=== PATIENT | female | born 2000 | race Caucasian/White ===

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

== ENCOUNTER 2020-02-13 10:10 | Inpatient (IN) ==
[2020-02-13] MEDS ORDERED: *HR* LORazepam 2 MG/ML VIAL IM PRN (10:21)
[2020-02-13] MEDS ORDERED: *HR* LORazepam 1 MG TABLET PO PRN (10:21)
[2020-02-13] MEDS ORDERED: Ibuprofen 400 MG TABLET PO PRN (10:21)
[2020-02-13] MEDS ORDERED: haloperidoL 5 MG TABLET PO PRN (10:21)
[2020-02-13] MEDS ORDERED: MOM Conc 10 ML UD.LIQ PO PRN (10:21)
[2020-02-13] MEDS ORDERED: Haloperidol Lactate 5 MG/ML VIAL IM PRN (10:21)
[2020-02-13] MEDS ORDERED: Mag Hydrox/Al Hydrox/Simeth 30 ML UDC PO PRN (10:21)
[2020-02-13] MEDS ORDERED: Calamine/Zinc oxide Lotion 120 ML BOTTLE TP PRN (17:00)
[2020-02-13] MEDS: hydrOXYzine pamoate 25 MG CAPSULE PO PRN (20:20)
[2020-02-13] MEDS: traZODone 50 MG TABLET PO PRN ×2 (20:20→22:05)
[2020-02-13] MEDS ORDERED: ARIPiprazole 5 MG TABLET PO SCH (21:00)
[2020-02-14] MEDS: Cholecalciferol (D-3) 1,000 UNIT (25MCG) TABLET PO SCH (09:45)
[2020-02-14] MEDS: lamoTRIgine 100 MG TABLET PO SCH (20:58)
[2020-02-14] MEDS: hydrOXYzine pamoate 25 MG CAPSULE PO PRN (20:58)
[2020-02-14] MEDS: ARIPiprazole 10 MG TABLET PO SCH (20:58)
[2020-02-14] MEDS: traZODone 50 MG TABLET PO PRN (20:58)
[2020-02-15] MEDS: Cholecalciferol (D-3) 1,000 UNIT (25MCG) TABLET PO SCH (09:41)
[2020-02-15] MEDS: ARIPiprazole 10 MG TABLET PO SCH (20:21)
[2020-02-15] MEDS: hydrOXYzine pamoate 25 MG CAPSULE PO PRN (20:22)
[2020-02-15] MEDS: Melatonin 3 MG TABLET PO SCH (20:22)
[2020-02-15] MEDS: lamoTRIgine 100 MG TABLET PO SCH (20:22)
[2020-02-16] MEDS: Cholecalciferol (D-3) 1,000 UNIT (25MCG) TABLET PO SCH (08:27)
[2020-02-16] MEDS: lamoTRIgine 25 MG TABLET PO SCH (12:08)
[2020-02-16] MEDS: Melatonin 3 MG TABLET PO SCH (20:11)
[2020-02-16] MEDS: hydrOXYzine pamoate 25 MG CAPSULE PO PRN (20:11)
[2020-02-16] MEDS: ARIPiprazole 10 MG TABLET PO SCH (20:12)
[2020-02-16] MEDS: lamoTRIgine 100 MG TABLET PO SCH (20:12)
[2020-02-16] MEDS ORDERED: ARIPiprazole 5 MG TABLET PO SCH (21:00)
[2020-02-17] MEDS: Cholecalciferol (D-3) 1,000 UNIT (25MCG) TABLET PO SCH (08:51)
[2020-02-17] MEDS: lamoTRIgine 25 MG TABLET PO SCH (08:52)
[2020-02-17] MEDS: lamoTRIgine 100 MG TABLET PO SCH (20:41)
[2020-02-17] MEDS: ARIPiprazole 10 MG TABLET PO SCH (20:41)
[2020-02-17] MEDS: Melatonin 3 MG TABLET PO SCH (20:41)
[2020-02-18] MEDS: Cholecalciferol (D-3) 1,000 UNIT (25MCG) TABLET PO SCH (09:08)
[2020-02-18] MEDS: lamoTRIgine 25 MG TABLET PO SCH (09:08)
[2020-02-18] MEDS ORDERED: lamoTRIgine 25 MG TABLET PO ONE (11:30)
[2020-02-18] MEDS: hydrOXYzine pamoate 25 MG CAPSULE PO PRN (18:23)
[2020-02-18] MEDS: Melatonin 3 MG TABLET PO SCH (20:56)
[2020-02-18] MEDS: lamoTRIgine 100 MG TABLET PO SCH (20:56)
[2020-02-18] MEDS ORDERED: ARIPiprazole 10 MG TABLET PO SCH (21:00)
[2020-02-19 07:52] VITALS: BP 96/67
[2020-02-19] MEDS: lamoTRIgine 25 MG TABLET PO SCH ×2 (08:58→09:24)
[2020-02-19] MEDS: Cholecalciferol (D-3) 1,000 UNIT (25MCG) TABLET PO SCH (08:58)
== END 2020-02-19 12:55 | disposition home or self-care (01) | DRG 885 ==
LOC: SUATTDRO 10:10 → 1ANU 10:10
PROVIDERS: ADMIT Psychiatry & Neurology Forensic Psychiatry; ATTEND Psychiatry & Neurology Psychiatry

== ENCOUNTER 2020-11-25 20:53 | Observation (INO) ==
[2020-11-25] MEDS ORDERED: 0.9 % Sodium Chloride 1,000 ML ONE (21:42)
[2020-11-25] MEDS ORDERED: 0.9 % Sodium Chloride 1,000 ML IVC ONE ×2 (21:48→23:15)
[2020-11-25 21:50] LABS: Basophils % 0.4 %; Eosinophils # 0.1 K/mcL (0.0-0.6); Hematocrit 42.1 % (35.3-44.9); Hemoglobin 14.3 g/dL (11.5-15.4); Immature Granulocytes % 0.2 % (0-4); Lymphocytes # 2.1 K/mcL (0.6-4.6); Lymphocytes % 23.9 %; Mean Corpuscular Hemoglobin 32.2 pg (28.0-33.3); Mean Corpuscular Volume 94.8 fL (83.0-100.0); Mean Platelet Volume 10.8 fL (9.4-12.4); Monocytes # 0.5 K/mcL (0.0-1.3); Monocytes % 5.7 %; Neutrophils # 6.1 K/mcL (1.6-8.9); Platelet Count 314 K/mcL (140-400); Red Blood Count 4.44 M/mcL (3.82-4.97); Red Cell Distribution Width 12.2 % (11.5-14.5); Segmented Neutrophils % 68.8 %; White Blood Count 8.9 K/mcL (4.3-11.1)
[2020-11-25 21:58] LABS: Amphetamine Screen,Urine Negative ng/mL (Cutoff=1000); Barbiturate Screen,Urine Negative ng/mL (Cutoff=200); Benzodiazepines Screen,Urine Negative ng/mL (Cutoff=200); Cannabinoid Screen,Urine Negative ng/mL (Cutoff = 50); Cocaine Screen,Urine Negative ng/mL (Cutoff= 300); Opiate Screen,Urine Negative ng/mL (Cutoff=300); Phencyclidine Screen,Urine Negative ng/mL (Cutoff=25)
[2020-11-25 22:09] LABS: Bilirubin,Urine Negative (Negative); Blood,Urine Negative (Negative); Clarity,Urine Clear (Clear); Color,Urine Colorless (Yellow); Glucose,Urine (UA) Normal (Normal); Ketones,Urine Negative (Negative); Leukocyte Esterase,Urine Negative (Negative); Nitrite,Urine Negative (Negative); Protein,Urine Negative (Neg-Trace); Specific Gravity,Urine 1.012 (1.010-1.025); Urobilinogen,Urine Normal (Normal)
[2020-11-25 22:55] LABS: Acetaminophen < 10 mcg/mL (10-20); BUN/Creatinine Ratio 17 (6-26); Blood Urea Nitrogen 14 mg/dL (6-20); Calcium 9.7 mg/dL (8.6-10.3); Carbon Dioxide 18 mEq/L (23-29); Chloride 108 mEq/L (98-107); Chol/HDL Ratio 4.6 (0-4.9); Cholesterol 174 mg/dL (< 200); Creatine Kinase 61 Units/L (30-223); Estimated Average Glucose 91 mg/dl; Ethanol < 10 mg/dL (Less than 10); Glucose 116 mg/dL (70-105); HDL Cholesterol 38 mg/dL (40-59); Hemoglobin A1C 4.8 %; Osmolality,Calculated 285 (280-300); Potassium 3.4 mEq/L (3.5-5.1); Salicylate < 2.5 mg/dL (15.0-30.0); Sodium 137 mEq/L (136-145); Triglycerides 582 mg/dL (< 150); eGFR For African Americans > 60 (> 60); eGFR For Non-African Americans > 60 (> 60)
[2020-11-25] MEDS ORDERED: Naloxone 0.4 MG/ML INJ IVP PRN (23:58)
[2020-11-26] MEDS ORDERED: Potassium Chloride 40 MEQ, Lidocaine 1% 2 ML in 0.9 % Sodium Chloride 500 ML IVPB ONE (00:39)
[2020-11-26] MEDS ORDERED: Magnesium Sulfate 1 GM/102 ML PIGGYBACK IVPB ONE (00:40)
[2020-11-26 02:22] LABS: Basophils % 0.5 %; Eosinophils % 0.3 %; Hematocrit 39.5 % (35.3-44.9); Immature Granulocytes % 0.2 % (0-4); Lymphocytes # 1.5 K/mcL (0.6-4.6); Lymphocytes % 17.1 %; Mean Corpuscular HGB Conc 32.9 g/dL (31.6-35.5); Mean Corpuscular Hemoglobin 32.1 pg (28.0-33.3); Mean Corpuscular Volume 97.5 fL (83.0-100.0); Mean Platelet Volume 10.8 fL (9.4-12.4); Monocytes # 0.4 K/mcL (0.0-1.3); Neutrophils # 6.6 K/mcL (1.6-8.9); Platelet Count 238 K/mcL (140-400); Red Blood Count 4.05 M/mcL (3.82-4.97); Red Cell Distribution Width 12.3 % (11.5-14.5); Segmented Neutrophils % 76.9 %; White Blood Count 8.6 K/mcL (4.3-11.1)
[2020-11-26 02:43] LABS: Alanine Aminotransferase 18 Units/L (7-52); Albumin 3.9 g/dL (3.5-5.7); Albumin/Globulin Ratio 1.6 (1.1-2.2); Alkaline Phosphatase 83 Units/L (34-104); Aspartate Amino Transferase 17 Units/L (13-39); BUN/Creatinine Ratio 21 (6-26); Bilirubin,Total 0.2 mg/dL (0.3-1.0); Blood Urea Nitrogen 13 mg/dL (6-20); Calcium 8.7 mg/dL (8.6-10.3); Carbon Dioxide 17 mEq/L (23-29); Chloride 111 mEq/L (98-107); Globulin 2.4 g/dL (2.4-3.5); Glucose 119 mg/dL (70-105); Osmolality,Calculated 287 (280-300); Potassium 3.7 mEq/L (3.5-5.1); Sodium 138 mEq/L (136-145); Total Protein 6.3 g/dL (6.4-8.9); eGFR For African Americans > 60 (> 60); eGFR For Non-African Americans > 60 (> 60)
[2020-11-26] MEDS: 0.9 % Sodium Chloride 1,000 ML IVC SCH ×3 (05:22→21:02)
[2020-11-26] MEDS: *HR* Heparin 5,000 UNIT/ML VIAL SQ SCH ×3 (05:24→21:00)
[2020-11-26] MEDS ORDERED: Zonisamide 100 MG CAPSULE PO SCH (21:00)
[2020-11-27 01:08] LABS: Basophils % 0.7 %; Eosinophils # 0.1 K/mcL (0.0-0.6); Eosinophils % 2.4 %; Hematocrit 39.1 % (35.3-44.9); Hemoglobin 12.8 g/dL (11.5-15.4); Immature Granulocytes % 0.2 % (0-4); Lymphocytes # 2.2 K/mcL (0.6-4.6); Lymphocytes % 38.1 %; Mean Corpuscular HGB Conc 32.7 g/dL (31.6-35.5); Mean Corpuscular Hemoglobin 31.8 pg (28.0-33.3); Mean Corpuscular Volume 97.3 fL (83.0-100.0); Mean Platelet Volume 10.3 fL (9.4-12.4); Monocytes # 0.4 K/mcL (0.0-1.3); Monocytes % 6.3 %; Neutrophils # 3.1 K/mcL (1.6-8.9); Platelet Count 251 K/mcL (140-400); Red Blood Count 4.02 M/mcL (3.82-4.97); Red Cell Distribution Width 12.6 % (11.5-14.5); Segmented Neutrophils % 52.3 %; White Blood Count 5.9 K/mcL (4.3-11.1)
[2020-11-27 01:27] LABS: BUN/Creatinine Ratio 16 (6-26); Blood Urea Nitrogen 12 mg/dL (6-20); Calcium 8.6 mg/dL (8.6-10.3); Carbon Dioxide 15 mEq/L (23-29); Chloride 115 mEq/L (98-107); Glucose 112 mg/dL (70-105); Osmolality,Calculated 285 (280-300); Potassium 4.3 mEq/L (3.5-5.1); Sodium 137 mEq/L (136-145); eGFR For African Americans > 60 (> 60); eGFR For Non-African Americans > 60 (> 60)
[2020-11-27] MEDS: 0.9 % Sodium Chloride 1,000 ML IVC SCH (05:05)
[2020-11-27] MEDS: *HR* Heparin 5,000 UNIT/ML VIAL SQ SCH (05:06)
[2020-11-27 11:05] VITALS: BP 117/78
== END 2020-11-27 11:40 ==
LOC: 2NNU 20:53 → EMEROOARM 20:53 → SUATTDRO 11-26 00:04 → 2NNU 11-26 01:20
PROVIDERS: ADMIT Internal Medicine; ATTEND Family Medicine

== ENCOUNTER 2020-11-27 11:25 | Inpatient (IN) ==
[2020-11-27] MEDS ORDERED: *HR* LORazepam 1 MG TABLET PO PRN (11:41)
[2020-11-27] MEDS ORDERED: hydrOXYzine pamoate 25 MG CAPSULE PO PRN (11:41)
[2020-11-27] MEDS ORDERED: haloperidoL 5 MG TABLET PO PRN (11:41)
[2020-11-27] MEDS ORDERED: MOM Conc 10 ML UD.LIQ PO PRN (11:41)
[2020-11-27] MEDS ORDERED: Mag Hydrox/Al Hydrox/Simeth 30 ML UDC PO PRN (11:41)
[2020-11-27] MEDS ORDERED: *HR* LORazepam 2 MG/ML VIAL IM PRN (11:41)
[2020-11-27] MEDS ORDERED: Haloperidol Lactate 5 MG/ML VIAL IM PRN (11:41)
[2020-11-27] MEDS ORDERED: traZODone 50 MG TABLET PO PRN (11:41)
[2020-11-27] MEDS ORDERED: Acetaminophen 325 MG TABLET PO PRN (11:41)
[2020-11-27] MEDS: Zonisamide 100 MG CAPSULE PO SCH (21:23)
[2020-11-28] MEDS: Zonisamide 100 MG CAPSULE PO SCH (20:11)
[2020-11-29 09:15] VITALS: BP 101/69
== END 2020-11-29 10:15 | disposition home or self-care (01) | DRG 885 ==
LOC: 1ANU 11:25
PROVIDERS: ADMIT Psychiatry & Neurology Psychiatry; ATTEND Psychiatry & Neurology Psychiatry

== ENCOUNTER 2022-05-09 19:47 | Inpatient (IN) ==
[2022-05-09 20:24] LABS: Basophils % 0.3 %; Eosinophils # 0.2 K/mcL (0.0-0.6); Eosinophils % 1.4 %; Hematocrit 41.5 % (35.3-44.9); Hemoglobin 14.1 g/dL (11.5-15.4); Immature Granulocytes % 0.3 % (0-4); Lymphocytes # 1.2 K/mcL (0.6-4.6); Lymphocytes % 11.3 %; Mean Corpuscular Hemoglobin 31.7 pg (28.0-33.3); Mean Corpuscular Volume 93.3 fL (83.0-100.0); Mean Platelet Volume 10.7 fL (9.4-12.4); Monocytes # 0.9 K/mcL (0.0-1.3); Monocytes % 7.8 %; Neutrophils # 8.6 K/mcL (1.6-8.9); Platelet Count 249 K/mcL (140-400); Red Blood Count 4.45 M/mcL (3.82-4.97); Red Cell Distribution Width 12.4 % (11.5-14.5); Segmented Neutrophils % 78.9 %; White Blood Count 10.9 K/mcL (4.3-11.1)
[2022-05-09 20:28] LABS: Bacteria,Urine Few per hpf (None-Few); Bilirubin,Urine Negative (Negative); Blood,Urine Negative (Negative); Clarity,Urine Turbid (Clear); Color,Urine Light-Yellow (Yellow); Glucose,Urine (UA) Normal (Normal); Ketones,Urine Negative (Negative); Leukocyte Esterase,Urine Negative (Negative); Mucus,Urine Few per lpf (None-Few); Nitrite,Urine Negative (Negative); PH,Urine 6.5 pH Units (5.0-8.0); Protein,Urine Negative (Neg-Trace); RBC,Urine 0-3 per hpf (0-3); Specific Gravity,Urine 1.016 (1.010-1.025); Squamous Epithelial Cell,Urine Moderate per hpf (None-Few); Urobilinogen,Urine Normal (Normal); WBC,Urine 0-3 per hpf (0-3)
[2022-05-09 20:31] LABS: Amphetamine Screen,Urine Negative ng/mL (Cutoff=1000); Barbiturate Screen,Urine Negative ng/mL (Cutoff=200); Benzodiazepines Screen,Urine Negative ng/mL (Cutoff=200); Cannabinoid Screen,Urine Negative ng/mL (Cutoff = 50); Cocaine Screen,Urine Negative ng/mL (Cutoff= 300); Opiate Screen,Urine Negative ng/mL (Cutoff=300); Phencyclidine Screen,Urine Negative ng/mL (Cutoff=25)
[2022-05-09 20:43] LABS: Acetaminophen < 10 mcg/mL (10-20); BUN/Creatinine Ratio 17 (6-26); Blood Urea Nitrogen 14 mg/dL (6-20); Calcium 9.6 mg/dL (8.6-10.3); Carbon Dioxide 22 mEq/L (23-29); Chloride 109 mEq/L (98-107); Ethanol < 10 mg/dL (Less than 10); Glucose 86 mg/dL (70-105); Osmolality,Calculated 286 (280-300); Potassium 3.6 mEq/L (3.5-5.1); Salicylate < 2.5 mg/dL (15.0-30.0); Sodium 138 mEq/L (136-145)
[2022-05-10 04:21] LABS: Influenza A PCR Negative (Negative); Influenza B PCR Negative (Negative); Resp. Syncytial Virus PCR Negative (Negative)
[2022-05-10 04:23] LABS: SARS-CoV-2 by PCR (In House) Negative (Negative)
[2022-05-10] MEDS ORDERED: *HR* LORazepam 1 MG TABLET PO PRN (05:01)
[2022-05-10] MEDS ORDERED: QUEtiapine Fumarate 25 MG TABLET PO PRN (05:01)
[2022-05-10] MEDS ORDERED: Haloperidol Lactate 5 MG/ML VIAL IM PRN (05:01)
[2022-05-10] MEDS ORDERED: *HR* LORazepam 2 MG/ML VIAL IM PRN (05:01)
[2022-05-10] MEDS ORDERED: haloperidoL 5 MG TABLET PO PRN (05:01)
[2022-05-10] MEDS ORDERED: Acetaminophen 325 MG TABLET PO PRN (06:00)
[2022-05-10] MEDS ORDERED: MOM Conc 10 ML UD.LIQ PO PRN (11:11)
[2022-05-10] MEDS ORDERED: Mag Hydrox/Al Hydrox/Simeth 30 ML UDC PO PRN (11:11)
[2022-05-10] MEDS ORDERED: GuaiFENesin/Pseudophedrine TABLET PO PRN (12:02)
[2022-05-10] MEDS: QUEtiapine Fumarate 100 MG TABLET PO SCH (20:13)
[2022-05-10] MEDS: Zonisamide 100 MG CAPSULE PO SCH (20:13)
[2022-05-10] MEDS: hydrOXYzine pamoate 25 MG CAPSULE PO PRN (21:48)
[2022-05-11] MEDS: QUEtiapine Fumarate 100 MG TABLET PO SCH (20:47)
[2022-05-11] MEDS: Zonisamide 100 MG CAPSULE PO SCH (20:48)
[2022-05-11] MEDS ORDERED: QUEtiapine Fumarate 100 MG TABLET PO SCH (21:00)
[2022-05-12] MEDS: hydrOXYzine pamoate 25 MG CAPSULE PO PRN (19:11)
[2022-05-12] MEDS: QUEtiapine Fumarate 100 MG TABLET PO SCH (20:17)
[2022-05-12] MEDS: Zonisamide 100 MG CAPSULE PO SCH (20:18)
[2022-05-12] MEDS ORDERED: QUEtiapine Fumarate 100 MG TABLET PO SCH (21:00)
[2022-05-13] MEDS ORDERED: QUEtiapine Fumarate 300 MG TABLET PO SCH (21:00)
[2022-05-13 21:24] VITALS: O2SAT 97
[2022-05-13] MEDS: QUEtiapine Fumarate 100 MG TABLET PO SCH (21:31)
[2022-05-13] MEDS: Zonisamide 100 MG CAPSULE PO SCH (21:32)
[2022-05-14 09:05] VITALS: BP 104/68; PULSE 87; TEMP 97.1
== END 2022-05-14 14:06 | disposition home or self-care (01) | DRG 817 ==
LOC: EMEROOARM 19:47 → 1ANU 05-10 04:51
PROVIDERS: ADMIT Psychiatry & Neurology Psychiatry; ATTEND Psychiatry & Neurology Psychiatry